=== PATIENT | female | born 1995 | race Caucasian/White ===

== ENCOUNTER 2016-12-08 18:59 | Emergency (ER) | payer OTHER ==
[2016-12-08 19:40] VITALS: BP 149/48
== END 2016-12-08 20:10 | disposition left against medical advice (07) ==
LOC: UCCORT 18:59
DX: R50.9 Fever, unspecified (principal); Z53.21 Procedure and treatment not carried out due to patient leaving prior to being seen by health care provider

== ENCOUNTER 2017-03-28 09:06 | Emergency (ER) | payer OTHER ==
--- NOTE | 2017-03-28 09:44 | UC ---
Throat Pain/Nasal Lencho HPI - HPI Summary HPI Summary: sore throat that began yesterday, difficult to swallow today. denies fever. + exposure to strep throat. + nasal congestion and mild cough. - History of Current Complaint Chief Complaint: UCGeneralIllness Stated Complaint: THROAT Time Seen by Provider: 03/28/17 09:27 Hx Last Menstrual Period: present - Allergies/Home Medications Allergies/Adverse Reactions: Allergies Allergy/AdvReac Type Severity Reaction Status Date / Time No Known Allergies Allergy Verified 03/28/17 09:22 Home Medications: Home Medications Simvastatin (NF) [Zocor (NF)] 40 03/28/17 [History] PMH/Surg Hx/FS Hx/Imm Hx Previously Healthy: Yes Endocrine History Of: Reports: Diabetes - non insulin dependent Denies: Thyroid Disease Cardiovascular History Of: Reports: Hypertension Denies: Cardiac Disorders Respiratory History Of: Denies: COPD, Asthma GI/ History Of: Denies: Ulcer - Surgical History Surgical History: None - Family History Known Family History: Positive: None, Diabetes, Other - MOTHER/FIANCE MRSA Negative: Blood Disorder - Social History Alcohol Use: None Substance Use Type: None Smoking Status (MU): Never Smoked Tobacco Review of Systems Constitutional: Negative Skin: Negative Eyes: Negative ENT: Sore Throat, Nasal Discharge Respiratory: Cough - no wheezing Cardiovascular: Negative Gastrointestinal: Negative Genitourinary: Negative Motor: Negative Neurovascular: Negative Musculoskeletal: Negative Neurological: Negative Psychological: Negative All Other Systems Reviewed And Are Negative: Yes Physical Exam Triage Information Reviewed: Yes Appearance: Well-Appearing, No Pain Distress, Well-Nourished Vital Signs: Initial Vital Signs Temp 98.4 F 03/28/17 09:14 Pulse 90 03/28/17 09:14 Resp 18 03/28/17 09:14 BP 137/82 03/28/17 09:14 Pulse Ox 99 03/28/17 09:14 Vital Signs Reviewed: Yes Eye Exam: Normal ENT Exam: Normal ENT: Positive: Pharyngeal erythema - + PND, no exudate., Nasal congestion, Nasal drainage, TMs normal. Negative: TM bulging, TM dull, TM red, Tonsillar swelling, Tonsillar exudate - no abscess Neck exam: Normal Neck: Positive: Supple, Nontender, No Lymphadenopathy Respiratory Exam: Normal Respiratory: Positive: Lungs clear, Normal breath sounds, No respiratory distress, No accessory muscle use Cardiovascular Exam: Normal Cardiovascular: Positive: RRR, No Murmur, Pulses Normal, Brisk Capillary Refill Abdomen Description: Positive: Nontender, Soft Musculoskeletal Exam: Normal Neurological Exam: Normal Psychological Exam: Normal Skin Exam: Normal Throat Pain/Nasal Course/Dx - Course Course Of Treatment: rapid strep neg - Differential Dx/Diagnosis Differential Diagnosis/HQI/PQRI: Laryngitis, Pharyngitis, URI Provider Diagnoses: URI, viral pharyngitis Discharge - Discharge Plan Condition: Stable Disposition: HOME Patient Education Materials: Pharyngitis (ED), Upper Respiratory Infection (ED) Referrals: ROB Vance [Primary Care Provider] - 4 Days Additional Instructions: Follow up with your PCP if your symptoms are no better or worsen. Lots of fluids and rest. Tylenol cold and sinus may be helpful as well.
[2017-03-28 09:45] VITALS: BP 137/82
== END 2017-03-28 10:29 | disposition home or self-care (01) ==
LOC: UCCORT 09:06
DX: J06.9 Acute upper respiratory infection, unspecified (principal); J02.8 Acute pharyngitis due to other specified organisms; E11.9 Type 2 diabetes mellitus without complications; I10 Essential (primary) hypertension
CPT/HCPCS: 87651; 99211; G0463

== ENCOUNTER 2017-07-10 09:08 | Emergency (ER) | payer OTHER ==
--- NOTE | 2017-07-10 09:22 | UC ---
Throat Pain/Nasal Lencho HPI - HPI Summary HPI Summary: 22 YEAR OLD FEMALE PRESENTS WITH COMPLAINS OF FEVER AND SORE THROAT. - History of Current Complaint Stated Complaint: FEVER/ST Time Seen by Provider: 07/10/17 09:19 Hx Obtained From: Patient Hx Last Menstrual Period: present Onset/Duration: Sudden Onset Severity: Moderate Pain Scale Used: 0-10 Numeric - 5 Cough: Nonproductive Associated Signs & Symptoms: Positive: Negative - Allergies/Home Medications Allergies/Adverse Reactions: Allergies Allergy/AdvReac Type Severity Reaction Status Date / Time Ibuprofen AdvReac Vomiting Verified 07/10/17 09:36 PMH/Surg Hx/FS Hx/Imm Hx Previously Healthy: Yes - Surgical History Surgical History: None - Family History Known Family History: Positive: None, Diabetes, Other - MOTHER/FIANCE MRSA Negative: Blood Disorder - Social History Alcohol Use: None Substance Use Type: None Smoking Status (MU): Never Smoked Tobacco Review of Systems Constitutional: Negative Skin: Negative Eyes: Negative ENT: Sore Throat, Nasal Discharge, Sinus Congestion Respiratory: Negative Cardiovascular: Negative Gastrointestinal: Negative Genitourinary: Negative Motor: Negative Neurovascular: Negative Musculoskeletal: Negative Neurological: Negative Psychological: Negative All Other Systems Reviewed And Are Negative: Yes Physical Exam Triage Information Reviewed: Yes Eye Exam: Normal ENT: Positive: Pharyngeal erythema, Nasal congestion, Nasal drainage, Tonsillar swelling Dental Exam: Normal Neck exam: Normal Neck: Positive: 1 Respiratory Exam: Normal Cardiovascular Exam: Normal Abdominal Exam: Normal Musculoskeletal Exam: Normal Neurological Exam: Normal Psychological Exam: Normal Skin Exam: Normal Throat Pain/Nasal Course/Dx - Differential Dx/Diagnosis Provider Diagnoses: TONSILLITIS. PHARYNGITIS Discharge - Discharge Plan Condition: Stable Disposition: HOME Prescriptions: Amoxicillin/Clavulanate TAB* [Augmentin TAB 875*] 875 mg PO BID #20 tab Magic M W2 Altaf/Maal/Nyst/Lido* 15 ml SWISH SPIT QID #120 ml Methylprednisolone [Medrol Dosepak 4 MG*] 4 mg PO .SEE BERTHA INSTRUCTION #21 tab Patient Education Materials: Pharyngitis (ED), Tonsillitis (ED) Referrals: ROB Vance [Z.BUSINESS, APPLICATION, OTHER] -
[2017-07-10 09:36] VITALS: BP 140/105
== END 2017-07-10 10:03 | disposition home or self-care (01) ==
LOC: UCCORT 09:08
DX: J03.90 Acute tonsillitis, unspecified (principal); J02.9 Acute pharyngitis, unspecified; Z32.02 Encounter for pregnancy test, result negative
CPT/HCPCS: 81003; 84702; 87070; 87086; 87651; 99212; G0463

== ENCOUNTER 2017-08-29 15:59 | Emergency (ER) | payer OTHER ==
[2017-08-29 16:31] VITALS: BP 150/82
--- NOTE | 2017-08-29 17:46 | UC ---
Upper Extremity HPI - HPI Summary HPI Summary: Pt presents with gradual onset of right hand and wrist pain and numbness that is worse in the morning upon wakening. pt also c/o of radiating burning, pain to right elbow and upper right arm. X 2-3 weeks. Pt denies injury - History of Current Complaint Chief Complaint: UCUpperExtremity Stated Complaint: RIGHT HAND PAIN Time Seen by Provider: 08/29/17 17:32 Hx Obtained From: Patient Hx Last Menstrual Period: 08/25/17 ?: No Onset/Duration: Gradual Onset, Lasting Weeks, Still Present Severity Initially: Mild Severity Currently: Mild Character: Dull, Aching Aggravating Factor(s): Flexion Alleviating Factor(s): Rest Associated Signs And Symptoms: Positive: Weakness, Numbness/Tingling Related History: Dominant Hand Right - Risk Factors Non-Orthopedic Risk Factor: Negative DVT Risk Factors: Negative Septic Arthritis Risk Factor: Negative - Allergies/Home Medications Allergies/Adverse Reactions: Allergies Allergy/AdvReac Type Severity Reaction Status Date / Time Ibuprofen AdvReac Vomiting Verified 08/29/17 16:28 PMH/Surg Hx/FS Hx/Imm Hx Previously Healthy: Yes - Surgical History Surgical History: None - Family History Known Family History: Positive: None, Diabetes, Other - MOTHER/FIANCE MRSA Negative: Blood Disorder - Social History Occupation: Employed Full-time Lives: With Family Alcohol Use: None Substance Use Type: None Smoking Status (MU): Never Smoked Tobacco Have You Smoked in the Last Year: No Review of Systems Constitutional: Negative Skin: Negative Eyes: Negative ENT: Negative Respiratory: Negative Cardiovascular: Negative Gastrointestinal: Negative Genitourinary: Negative Motor: Negative Neurovascular: Negative Musculoskeletal: Arthralgia, Myalgia - right hand and forearm Neurological: Negative Psychological: Negative Is Patient Immunocompromised?: No All Other Systems Reviewed And Are Negative: Yes Physical Exam Triage Information Reviewed: Yes Appearance: Well-Appearing Vital Signs: Initial Vital Signs Temp 98.2 F 08/29/17 16:22 Pulse 90 08/29/17 16:22 Resp 16 08/29/17 16:22 BP 150/82 08/29/17 16:22 Pulse Ox 98 08/29/17 16:22 Eye Exam: Normal ENT Exam: Normal Neck exam: Normal Respiratory Exam: Normal Cardiovascular Exam: Normal Musculoskeletal Exam: Normal Musculoskeletal: Positive: Strength Intact, Other: - pain dorsal medial forarm and mid wrist Neurological Exam: Normal Psychological Exam: Normal Skin Exam: Normal Upper Extremity Course/Dx - Differential Dx/Diagnosis Differential Diagnosis/HQI/PQRI: Strain Provider Diagnoses: tendinitis. ovetruse syndrome. neuritis Discharge - Discharge Plan Condition: Stable Disposition: HOME Prescriptions: predniSONE TAB* [Deltasone TAB*] 20 mg PO DAILY #4 tab Patient Education Materials: Tendinitis (ED) Referrals: Ricardo Martinez MD [Medical Doctor] - If Needed B[facility] [Primary Care Provider] - If Needed Additional Instructions: Please follow up with your PCP or return to clinic. We have provided a referral to an orthopedic provider please follow up as needed.
== END 2017-08-29 18:00 | disposition home or self-care (01) ==
LOC: UCCORT 15:59
DX: M77.8 Other enthesopathies, not elsewhere classified (principal); M79.2 Neuralgia and neuritis, unspecified; Z88.6 Allergy status to analgesic agent
CPT/HCPCS: 99212; G0463

== ENCOUNTER 2018-06-29 08:15 | Emergency (ER) | payer OTHER ==
--- OUTSIDE RECORDS SUMMARY | 2018-06-29 08:22 | XMS REPORT ---
:1995 Author Organization [facility] Address [address] [place] [address] Care Team Providers Name Role Phone Radha Calles Unavailable Unavailable PROBLEMS Type Condition ICD9-CM [id number] Onset Condition SNOMED Code Code Code Dates Status Problem Family history of Z80.49 Active 204650366 malignant neoplasm of other genital organs Problem Family history of Z80.41 Active 042320487 malignant neoplasm of ovary Problem Chlamydial A74.9 Active 993574598 infection, unspecified Problem Essential I10 Active 17279877 (primary) hypertension Problem Type 2 diabetes E11.9 Active 167298936 mellitus without complications Problem Polycystic ovarian E28.2 Active 01802386 syndrome Problem Noninflammatory N90.9 Active 176339358 disorder of vulva and perineum, unspecified Problem Body mass index Z68.43 Active 297345456 (BMI) 50-59.9 , adult Problem Impaired glucose R73.02 Active 380072307 tolerance (oral) Problem Irregular N92.6 Active 36325876 menstruation, unspecified Problem Other ovarian N83.291 Active 55470576793013530 cyst, right side Problem Morbid (severe) E66.01 Active 160467403 obesity due to excess calories ALLERGIES No Information ENCOUNTERS Encounter Location Date Diagnosis [facility] [address] Nov, OBGYN [place] [id number] [facility] Jun, [place]BG[place] [id number] [facility] Jun, [place]BG[place] [id number] [facility] Jun, [place] [id number] [facility] [address] Jun, [place] [id number] [facility] 103 May, [place] [id number] [facility] 103 May, [place] [id number] [facility] 103 May, Irregular menstruation, OBG[facility], unspecified N92.6 ; Other [place] [id number] ovarian cyst, right side N83.291 ; Family history of malignant neoplasm of other genital organs Z80.49 ; Family history of malignant neoplasm of ovary Z80.41 ; Encounter for screening for infections with a predominantly sexual mode of transmission Z11.3 ; Noninflammatory disorder of vulva and perineum, unspecified N90.9 and Body mass index (BMI) 50-59.9 , adult Z68.43 [facility] 103 May, [place] [id number] [facility] 103 May, [place] [id number] [facility] 103 Apr, [facility]regular menstruation, [facility], unspecified N92.6 and [place] [id number] Polycystic ovarian syndrome E28.2 [facility] 103 Apr, [place] [id number] [facility] 103 Apr, Encounter for screening [facility], for infections with a [place] [id number] predominantly sexual mode of transmission Z11.3 [facility] 103 March, [place] [id number] [facility] 103 March, [place] [id number] [facility] 103 March, [place] [id number] [facility] 103 Feb, Irregular menstruation, [facility], unspecified N92.6 ; [place] [id number] Chlamydial infection, unspecified A74.9 ; Other ovarian cyst, right side N83.291 and Polycystic ovarian syndrome E28.2 [facility] Feb, [facility], malignant neoplasm [place] [id number] other genital organs Z80.49 ; Polycystic ovarian syndrome E28.2 ; Irregular menstruation, unspecified N92.6 ; Family history of malignant neoplasm of ovary Z80.41 and Encounter for routine checking of intrauterine contraceptive device Z30.431 [facility] [address] Feb, [place] [id number] [facility] [address] Feb, [place] [id number] [facility] 103 Feb, [place] [id number] [facility] 103 Feb, Chlamydial infection , [facility], unspecified A74.9 [place] [id number] [facility] 103 Jan, Chlamydial infection , [facility], unspecified A74.9 [place] [id number] [facility] Jan, [place] [id number] [facility] 103 Jan, Chlamydial infection , [facility], unspecified A74.9 and [place] [id number] Irregular menstruation, unspecified N92.6 [facility] 103 Dec, [place] [id number] [facility] Nov, [place] [id number] [facility] 103 Nov, Chlamydial infection , [facility], unspecified A74.9 and [place] [id number] Other specified noninflammatory disorders of vagina N89.8 [facility] 103 Nov, Impaired glucose tolerance [facility], (oral) R73.02 [place] [id number] [facility] Nov, Encounter for [facility], gynecological examination [place] [id number] (general) (routine) with abnormal findings Z01.411 ; Encounter for screening for malignant neoplasm of cervix Z12.4 ; Encounter for contraceptive management, unspecified Z30.9 ; Family history of malignant neoplasm of ovary Z80.41 ; Family history of malignant neoplasm of other genital organs Z80.49 ; Chlamydial infection, unspecified A74.9 ; Polycystic ovarian syndrome E28.2 ; Morbid (severe) obesity due to excess calories E66.01 ; Impaired glucose tolerance (oral) R73.02 and Irregular menstruation, unspecified N92.6 [facility] [address] Oct, [place], [place] [id number] [facility] [address] Oct, [place], [place] [id number] [facility] 103 Oct, Encounter for screening [facility], for infections with a [place] [id number] predominantly sexual mode of transmission Z11.3 ; Chlamydial infection, unspecified A74.9 ; Family history of malignant neoplasm of other genital organs Z80.49 ; Polycystic ovarian syndrome E28.2 and Amenorrhea, unspecified N91.2 [facility] [address] Aug, [place], [place] [id number] [facility] [address] Aug, [place], [place] [id number] [facility] Aug, 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 [facility], V72.31 and Amenorrhea [place] [id number] 626.0 [facility] [address] March, [place]BG[place] [id number] [facility] 103 March, [place]BG[place] [id number] [facility] 103 March, Postcoital bleeding 626.7 [facility]YN [facility], and STD Screen V74.5 [place] [id number] IMMUNIZATIONS No Known Immunizations SOCIAL HISTORY Never Assessed REASON FOR REFERRAL FUNCTIONAL STATUS PLAN OF CARE VITAL SIGNS MEDICATIONS Unknown Medications PROCEDURES No Known procedures RESULTS No Results REASON FOR VISIT Appt issue MEDICAL (GENERAL) HISTORY Type Description Date Medical History HTN Medical History PCOS Medical History Vitamin D def. Medical History Type 2 diabetes
--- OUTSIDE RECORDS SUMMARY | 2018-06-29 08:22 | XMS REPORT ---
:1995 Author Organization [facility] Address [address] [place] [address] Care Team Providers Name Role Phone Radha Calles Unavailable Unavailable PROBLEMS Type Condition ICD9-CM [id number] Onset Condition SNOMED Code Code Code Dates Status Problem Type 2 diabetes E11.9 Active 969059510 mellitus without complications Problem Family history of Z80.49 Active 526823756 malignant neoplasm of other genital organs Problem Polycystic E28.2 Active 22753216 ovarian syndrome Problem Herpesviral A60.00 Active 21622028 infection of urogenital system, unspecified Problem Essential I10 Active 81523140 (primary) hypertension Problem 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, unspecified Problem Body mass index Z68.43 Active 205616236 (BMI) 50-59.9 , adult Problem Family history of Z80.41 Active 146623852 malignant neoplasm of ovary Problem Chlamydial A74.9 Active 618797807 infection, unspecified Problem Other ovarian N83.291 Active 14978076835160615 cyst, right side Problem Irregular N92.6 Active 33632034 menstruation, unspecified ALLERGIES No Information ENCOUNTERS Encounter Location Date Diagnosis [facility] [address] Nov, [place]BG[place] [id number] [facility] Jul, [place] [id number] [facility] [address] Jul, [place] [id number] [facility] [address] Jul, [place] [id number] [facility] [address] Jul, [place] [id number] [facility] [address] Jun, [place], [place] [id number] [place] [facility] [address] Jun, [place], [place] [id number] [place] [facility] 103 Jun, Irregular menstruation, [facility], unspecified N92.6 ; Other [place] [id number] ovarian cyst, right side N83.291 ; Family history of malignant neoplasm of other genital organs Z80.49 ; Family history of malignant neoplasm of ovary Z80.41 ; Encounter for screening for infections with a predominantly sexual mode of transmission Z11.3 ; Noninflammatory disorder of vulva and perineum, unspecified N90.9 ; Body mass index (BMI) 50-59.9 , adult Z68.43 and Anogenital herpesviral infection, unspecified A60.9 [place] [facility] Jun, Family history of [facility], malignant neoplasm of [place] [id number] other genital organs Z80.49 ; Polycystic ovarian syndrome E28.2 ; Family history of malignant neoplasm of ovary Z80.41 and Irregular menstruation, unspecified N92.6 [place] [facility] [address] May, [place], [place] [id number] [place] [facility] [address] May, [place], [place] [id number] [place] [facility] 103 May, Irregular menstruation, [facility], unspecified N92.6 ; Other [place] [id number] ovarian cyst, right side N83.291 ; Family history of malignant neoplasm of other genital organs Z80.49 ; Family history of malignant neoplasm of ovary Z80.41 ; Encounter for screening for infections with a predominantly sexual mode of transmission Z11.3 ; Noninflammatory disorder of vulva and perineum, unspecified N90.9 and Body mass index (BMI) 50-59.9 , adult Z68.43 [place] [facility] [address] May, [place], [place] [id number] [place] [facility] 103 May, [place] [id number] [place] [facility] 103 Apr, [facility], [facility], unspecified N92.6 and [place] [id number] Polycystic ovarian syndrome E28.2 [place] [facility] [address] Apr, [place] [id number] [facility] Apr, Encounter for screening [facility], for infections with a [place] [id number] predominantly sexual mode of transmission Z11.3 [place] [facility] [address] March, [place] [id number] [place] [facility] [address] March, [place] [id number] [place] [facility] [address] March, [place] [id number] [place] [facility] 103 Feb, Irregular menstruation, [facility], unspecified N92.6 ; [place] [id number] Chlamydial infection, unspecified A74.9 ; Other ovarian cyst, right side N83.291 and Polycystic ovarian syndrome E28.2 [place] [facility] Feb, Family history of [facility], malignant neoplasm of [place] [id number] other genital organs Z80.49 ; Polycystic ovarian syndrome E28.2 ; Irregular menstruation, unspecified N92.6 ; Family history of malignant neoplasm of ovary Z80.41 and Encounter for routine checking of intrauterine contraceptive device Z30.431 [place] [facility] [address] Feb, [place] [id number] [place] [facility] Feb, [place] [id number] [place] [facility] [address] Feb, [place] [id number] [place] [facility] 103 Feb, [facility] , [facility], unspecified A74.9 [place] [id number] [place] [facility] 103 Jan, Chlamydial infection , [facility], unspecified A74.9 [place] [id number] [place] [facility] Jan, [facility] [place] [id number] [place] [facility] Jan, Chlamydial infection , [facility], unspecified A74.9 and [place] [id number] Irregular menstruation, unspecified N92.6 [place] [facility] 103 Dec, [facility] [place] [id number] [place] [facility] 103 Nov, [facility] [place] [id number] [place] [facility] 103 Nov, Chlamydial infection , [facility], unspecified A74.9 and [place] [id number] Other specified noninflammatory disorders of vagina N89.8 [place] [facility] 103 Nov, Impaired glucose tolerance [facility], (oral) R73.02 [place] [id number] [place] [facility] Nov, Encounter for [facility], gynecological examination [place] [id number] (general) (routine) with abnormal findings Z01.411 ; [...] (oral) R73.02 and Irregular menstruation, unspecified N92.6 [facility] 103 Oct, [place] [id number] [facility] 103 Oct, [place] [id number] [facility] 103 Oct, [facility], for infections with a [place] [id number] predominantly sexual mode of transmission Z11.3 ; Chlamydial infection, unspecified A74.9 ; Family history of malignant neoplasm of other genital organs Z80.49 ; Polycystic ovarian syndrome E28.2 and Amenorrhea, unspecified N91.2 [facility] 103 Aug, [place] [id number] [facility] 103 Aug, [place] [id number] [facility] 103 Aug, 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 [facility], V72.31 and [place] [id number] 626.0 [facility] 103 March, [place] [id number] [facility] 103 March, [place] [id number] [facility] 103 March, [facility]coital bleeding 626.7 [facility], and STD Screen V74.5 [place] [id number] IMMUNIZATIONS No Known Immunizations SOCIAL HISTORY Never Assessed REASON FOR REFERRAL FUNCTIONAL STATUS PLAN OF CARE VITAL SIGNS MEDICATIONS Unknown Medications PROCEDURES No Known procedures RESULTS No Results REASON FOR VISIT hey MEDICAL (GENERAL) HISTORY Type Description Date Medical History HTN Medical History PCOS Medical History Vitamin D def. Medical History Type 2 diabetes
--- OUTSIDE RECORDS SUMMARY | 2018-06-29 08:22 | XMS REPORT ---
:1995 Author Organization [facility] Address [address] [place] [address] Care Team Providers Name Role Phone Carlos Hines Unavailable Unavailable PROBLEMS Type Condition ICD9-CM [id number] Onset Condition SNOMED Code Code Code Dates Status Problem Type 2 diabetes E11.9 Active 910582385 mellitus without complications Problem Family history of Z80.49 Active 698460070 malignant neoplasm of other genital organs Problem Polycystic E28.2 Active 58210160 ovarian syndrome Problem Herpesviral A60.00 Active 33116190 infection of urogenital system, unspecified Problem Essential I10 Active 98323448 (primary) hypertension Problem Anogenital A60.9 Active 281352802 herpesviral infection, unspecified Problem Body mass index Z68.43 Active 199338922 (BMI) 50-59.9 , adult Problem Family history of Z80.41 Active 265093376 malignant neoplasm of ovary Problem Chlamydial A74.9 Active 932323148 infection, unspecified Problem Other ovarian N83.291 Active 20456026049052009 cyst, right side Problem Irregular N92.6 Active 73158312 menstruation, unspecified ALLERGIES No Known Allergies ENCOUNTERS Encounter Location Date Diagnosis [facility] [address] Nov, [place] [id number] [facility] Jul, [place] [id number] [facility] [address] Jul, [place] [id number] [facility] Jul, [place] [id number] [facility] [address] Jul, [place] [id number] [facility] Jun, [place] [id number] [place] [facility] Jun, [place] [id number] [place] [facility] Jun, Irregular menstruation, [facility], unspecified N92.6 ; Other [place] [id number] ovarian cyst, right side N83.291 ; Family history of malignant neoplasm of other genital organs Z80.49 ; Family history of malignant neoplasm of ovary Z80.41 ; Encounter for screening for infections with a predominantly sexual mode of transmission Z11.3 ; Noninflammatory disorder of vulva and perineum, unspecified N90.9 ; Body mass index (BMI) 50-59.9 , adult Z68.43 and Anogenital herpesviral infection, unspecified A60.9 [place] [facility] Jun, Family history of [facility], malignant [place]oplasm [place] [address] other genital organs Z80.49 ; Polycystic ovarian syndrome E28.2 ; Family history of malignant neoplasm of ovary Z80.41 and Irregular menstruation, unspecified N92.6 [place] [facility] [address] May, [place], [place] [id number] [place] [facility] May, [place], [place] [id number] [place] [facility] May, Irregular menstruation, [facility], unspecified N92.6 ; Other [place] [id number] ovarian cyst, right side N83.291 ; Family history of malignant neoplasm of other genital organs Z80.49 ; Family history of malignant neoplasm of ovary Z80.41 ; Encounter for screening for infections with a predominantly sexual mode of transmission Z11.3 ; Noninflammatory disorder of vulva and perineum, unspecified N90.9 and Body mass index (BMI) 50-59.9 , adult Z68.43 [place] [facility] [address] May, [place] [id number] [place] [facility] 103 May, [place] [id number] [place] [facility] 103 Apr, Irregular menstruation, [facility], unspecified N92.6 and [place] [id number] Polycystic ovarian syndrome E28.2 [place] [facility] Apr, [place] [id number] [facility] Apr, Encounter for screening [facility], for infections with a [place] [id number] predominantly sexual mode of transmission Z11.3 [place] [facility] March, [place] [id number] [place] [facility] 103 March, [place] [id number] [facility] March, [place] [id number] [place] [facility] Feb, Irregular menstruation, [facility], unspecified N92.6 ; [place] [id number] Chlamydial infection, unspecified A74.9 ; Other ovarian cyst, right side N83.291 and Polycystic ovarian syndrome E28.2 [place] [facility] Feb, Family history of [facility], malignant neoplasm [place] [address] other genital organs Z80.49 ; Polycystic ovarian syndrome E28.2 ; Irregular menstruation, unspecified N92.6 ; Family history of malignant neoplasm of ovary Z80.41 and Encounter for routine checking of intrauterine contraceptive device Z30.431 [facility] Feb, [place] [id number] [place] [facility] Feb, [place] [id number] [place] [facility] Feb, [facility] [place] [id number] [place] [facility] Feb, [facility] , [facility], unspecified A74.9 [place] [id number] [place] [facility] 103 Jan, Chlamydial infection , [facility], unspecified A74.9 [place] [id number] [place] [facility] Jan, [facility] [place] [id number] [place] [facility] Jan, [facility]ial infection , [facility], unspecified A74.9 and [place] [id number] Irregular menstruation, unspecified N92.6 [place] [facility] Dec, [facility] [place] [id number] [place] [facility] Nov, [facility] [place] [id number] [place] [facility] 103 Nov, Chlamydial infection , [facility], unspecified A74.9 and [place] [id number] Other specified noninflammatory disorders of vagina N89.8 [place] [facility] Nov, Impaired glucose tolerance [facility], (oral) R73.02 [place] [id number] [place] [facility] Nov, Encounter for [facility], gynecological examination [place] [id number] (general) (routine) with abnormal findings Z01.411 ; [...] (oral) R73.02 and Irregular menstruation, unspecified N92.6 [facility] [address] Oct, [place] [id number] [facility] [address] Oct, [place], [place] [id number] [facility] 103 Oct, Encounter for screening [facility], for infections with a [place] [id number] predominantly sexual mode of transmission Z11.3 ; Chlamydial infection, unspecified A74.9 ; Family history of malignant neoplasm of other genital organs Z80.49 ; Polycystic ovarian syndrome E28.2 and Amenorrhea, unspecified N91.2 [facility] [address] Aug, [place], [place] [id number] [facility] [address] Aug, [place] [id number] [facility] [address] Aug, 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 Schedule hysterosono/EMB (needs preauth) [facility]: VITAL SIGNS Height 65 in 2018-06-14 Weight 352 lbs 2018-06-14 BMI 58.57 kg/m2 2018-06-14 Blood pressure systolic 126 mm Hg 2018-06-14 Blood pressure diastolic 72 mm Hg 2018-06-14 MEDICATIONS Medication Instructions Dosage Frequency Start End Duration Status Date Date Cytotec 200 mcg orally 1 at 1 tab Jun, Active dinner, 1 at 2018 bedtime, 1 in AM of procedure Valacyclovir orally once a 1 tab(s) 24h Jun, 7 day(s) Active Hydrochloride 500 day 2017 mg norethindrone orally once a 1 tab(s) 24h Feb, 84 days Active 0.35 mg day 2017 metformin 500 mg orally BID 1 12h Active lisinopril 40 mg orally once a 1 tab(s) 24h 30 day(s) Active day PROCEDURES No Known procedures RESULTS No Results REASON FOR VISIT fup to US, Needs AUB w/up - worrisome F[place] needed - (FH uterine and ov cancers), Please informpt HSV 2 swab at last visit was + MEDICAL (GENERAL) HISTORY Type Description Date Medical History HTN Medical History PCOS Medical History Vitamin D def. Medical History Type 2 diabetes
--- OUTSIDE RECORDS SUMMARY | 2018-06-29 08:22 | XMS REPORT ---
:1995 Author Organization [facility] Address [address] [place] [address] Care Team Providers Name Role Phone Radha Calles Unavailable Unavailable PROBLEMS Type Condition ICD9-CM [id number] Onset Condition SNOMED Code Code Code Dates Status Problem Type 2 diabetes E11.9 Active 951280076 mellitus without complications Problem Family history of Z80.49 Active 642160177 malignant neoplasm of other genital organs Problem Polycystic E28.2 Active 13137746 ovarian syndrome Problem Herpesviral A60.00 Active 97228491 infection of urogenital system, unspecified Problem Essential I10 Active 93553440 (primary) hypertension Problem Anogenital A60.9 Active 361045935 herpesviral infection, unspecified Problem Body mass index Z68.43 Active 348644659 (BMI) 50-59.9 , adult Problem Family history of Z80.41 Active 438723915 malignant neoplasm of ovary Problem Chlamydial A74.9 Active 256595981 infection, unspecified Problem Other ovarian N83.291 Active 13984757605424168 cyst, right side Problem Irregular N92.6 Active 69542591 menstruation, unspecified ALLERGIES No Information ENCOUNTERS Encounter Location Date Diagnosis [facility] [address] Nov, [place], [place] [id number] [facility] Jul, [place] [id number] [facility] [address] Jul, [place] [id number] [facility] [address] Jul, [place] [id number] [facility] [address] Jul, [place] [id number] [facility] [address] Jun, [place] [id number] [facility] Jun, [place] [id number] [facility] Jun, [facility], [place] [id number] other genital organs Z80.49 and Family history of malignant neoplasm of ovary Z80.41 [facility] [address] Jun, [place] [id number] [facility] Jun, Irregular menstruation, [facility], unspecified N92.6 ; Other [place] [id number] ovarian cyst, right side N83.291 ; Family history of malignant neoplasm of other genital organs Z80.49 ; Family history of malignant neoplasm of ovary Z80.41 ; Encounter for screening for infections with a predominantly sexual mode of transmission Z11.3 ; Noninflammatory disorder of vulva and perineum, unspecified N90.9 ; Body mass index (BMI) 50-59.9 , adult Z68.43 and Anogenital herpesviral infection, unspecified A60.9 [facility] [address] Jun, Family history of OBGYN [facility], malignant [place]oplasm [place] [address] other genital organs Z80.49 ; Polycystic ovarian syndrome E28.2 ; Family history of malignant neoplasm of ovary Z80.41 and Irregular menstruation, unspecified N92.6 [facility] [address] May, [place] [id number] [facility] May, [place] [id number] [facility] May, Irregular menstruation, [facility], unspecified N92.6 ; Other [place] [id number] ovarian cyst, right side N83.291 ; Family history of malignant neoplasm of other genital organs Z80.49 ; Family history of malignant neoplasm of ovary Z80.41 ; Encounter for screening for infections with a predominantly sexual mode of transmission Z11.3 ; Noninflammatory disorder of vulva and perineum, unspecified N90.9 and Body mass index (BMI) 50-59.9 , adult Z68.43 [facility] [address] May, [place] [id number] [facility] [address] May, [place] [id number] [facility] 103 Apr, Irregular menstruation, [facility], unspecified N92.6 and [place] [id number] Polycystic ovarian syndrome E28.2 [facility] Apr, [place] [id number] [facility] 103 Apr, Encounter for screening [facility], for infections with a [place] [id number] predominantly sexual mode of transmission Z11.3 [facility] 103 March, [place] [id number] [facility] 103 March, [place] [id number] [facility] 103 March, [place] [id number] [facility] 103 Feb, Irregular menstruation, [facility], unspecified N92.6 ; [place] [id number] Chlamydial infection, unspecified A74.9 ; Other ovarian cyst, right side N83.291 and Polycystic ovarian syndrome E28.2 [facility] Feb, Family history of OBGYN [facility], malignant [place]oplasm [place] [address] other genital organs Z80.49 ; Polycystic ovarian syndrome E28.2 ; Irregular menstruation, unspecified N92.6 ; Family history of malignant neoplasm of ovary Z80.41 and Encounter for routine checking of intrauterine contraceptive device Z30.431 [facility] 103 Feb, [place] [id number] [facility] 103 Feb, [place] [id number] [facility] Feb, [place] [id number] [facility] 103 Feb, Chlamydial infection , [facility], unspecified A74.9 [place] [id number] [facility] 103 Jan, Chlamydial infection , [facility], unspecified A74.9 [place] [id number] [facility] Jan, [place] [id number] [facility] 103 Jan, Chlamydial infection , [facility], unspecified A74.9 and [place] [id number] Irregular menstruation, unspecified N92.6 [facility] 103 Dec, [place] [id number] [facility] 103 Nov, [place] [id number] [facility] 103 Nov, Chlamydial infection , [facility], unspecified A74.9 and [place] [id number] Other specified noninflammatory disorders of vagina N89.8 [facility] 103 Nov, Impaired glucose tolerance [facility], (oral) R73.02 [place] [id number] [facility] Nov, Encounter for [facility] gynecological examination [place] [id number] (general) (routine) with abnormal findings Z01.411 ; [...] (oral) R73.02 and Irregular menstruation, unspecified N92.6 [facility] [address] Oct, [place], [place] [id number] [facility] Oct, [place], [place] [id number] [facility] 103 Oct, Encounter for screening [facility], for infections with a [place] [id number] predominantly sexual mode of transmission Z11.3 ; Chlamydial infection, unspecified A74.9 ; Family history of malignant neoplasm of other genital organs Z80.49 ; Polycystic ovarian syndrome E28.2 and Amenorrhea, unspecified N91.2 [facility] [address] Aug, [place], [place] [id number] [facility] Aug, [place], [place] [id number] [facility] 103 Aug, 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 [facility], V72.31 and [place] [id number] 626.0 [facility] 103 March, [place], [place] [id number] [facility] 103 March, [place], [place] [id number] [facility] 103 29 Mar, 2013 Postcoital bleeding 626.7 OBGYN [facility], and STD Screen V74.5 [place] [id number] IMMUNIZATIONS No Known Immunizations SOCIAL HISTORY Never Assessed REASON FOR REFERRAL FUNCTIONAL STATUS PLAN OF CARE VITAL SIGNS MEDICATIONS Unknown Medications PROCEDURES No Known procedures RESULTS No Results REASON FOR VISIT [facility] Insurance [facility] Member Patient Patient Patient Patient Patient Subscriber Subscriber Subscriber Group Insurance Plan Plan Plan Plan ID Relationship Address Phone Name Date of ID Name Date of No Type Insurance Insurance Insurance Coverage to Subscriber Address Phone Name Dates [phone] Huber self Mare[place] [id number] [place] [address] [facility] [place] [address] [employer] [phone] [employer] [place] [id number] Blue [id number] 89 Blue [place] 2 Cross/Blue [place] Cross/Blue Shield [address] Shield Cigna [phone] Cign[employer] self [place] [id number] [address] [place] [address] MEDICAL (GENERAL) HISTORY Type Description Date Medical History HTN Medical History PCOS Medical History Vitamin D def. Medical History Type 2 diabetes
--- OUTSIDE RECORDS SUMMARY | 2018-06-29 08:22 | XMS REPORT ---
:1995 Author Name sound, ultra Care Team Providers Name Role Phone sound, ultra Unavailable Unavailable PROBLEMS Type Condition ICD9-CM [id number] Onset Condition SNOMED Code Code Code Dates Status Problem Type 2 diabetes E11.9 Active 578997369 mellitus without complications Problem Family history of Z80.49 Active 670764853 malignant neoplasm of other genital organs Problem Polycystic E28.2 Active 23581675 ovarian syndrome Problem Herpesviral A60.00 Active 96513186 infection of urogenital system, unspecified Problem Essential I10 Active 42203726 (primary) hypertension Problem Anogenital A60.9 Active 596406778 herpesviral infection, unspecified Problem Body mass index Z68.43 Active 585355623 (BMI) 50-59.9 , adult Problem Family history of Z80.41 Active 093178540 malignant neoplasm of ovary Problem Chlamydial A74.9 Active 231582012 infection, unspecified Problem Other ovarian N83.291 Active [id number] cyst, right side Problem Irregular N92.6 Active 50169946 menstruation, unspecified ALLERGIES No Information ENCOUNTERS Encounter Location Date Diagnosis [facility] Nov, [place], [place] [id number] [facility] Jul, [place] [id number] [facility] Jul, [place] [id number] [facility] Jul, [place] [id number] [facility] Jul, [place] [id number] [facility] Jun, Family history of OBGYN [facility], malignant neoplasm of [place] [address] other genital organs Z80.49 and Family history of malignant neoplasm of ovary Z80.41 [facility] Jun, [place], [place] [id number] [facility] Jun, Irregular menstruation, [facility], unspecified N92.6 ; Other [place] [id number] ovarian cyst, right side N83.291 ; Family history of malignant neoplasm of other genital organs Z80.49 ; Family history of malignant neoplasm of ovary Z80.41 ; Encounter for screening for infections with a predominantly sexual mode of transmission Z11.3 ; Noninflammatory disorder of vulva and perineum, unspecified N90.9 ; Body mass index (BMI) 50-59.9 , adult Z68.43 and Anogenital herpesviral infection, unspecified A60.9 [facility] Jun, Family history of [facility], [place]oplasm [place] [address] other genital organs Z80.49 ; Polycystic ovarian syndrome E28.2 ; Family history of malignant neoplasm of ovary Z80.41 and Irregular menstruation, unspecified N92.6 [facility] May, [place], [place] [id number] [facility] May, [place], [place] [id number] [facility] May, Irregular menstruation, [facility], unspecified N92.6 ; Other [place] [id number] ovarian cyst, right side N83.291 ; Family history of malignant neoplasm of other genital organs Z80.49 ; Family history of malignant neoplasm of ovary Z80.41 ; Encounter for screening for infections with a predominantly sexual mode of transmission Z11.3 ; Noninflammatory disorder of vulva and perineum, unspecified N90.9 and Body mass index (BMI) 50-59.9 , adult Z68.43 [facility] May, [place] [id number] [facility] May, [place] [id number] [facility] 103 Apr, Irregular menstruation, [facility], unspecified N92.6 and [place] [address] Polycystic ovarian syndrome E28.2 [facility] Apr, [place] [id number] [facility] Apr, Encounter for screening [facility], for infections with a [place] [address] predominantly sexual mode of transmission Z11.3 [facility] March, [place] [id number] [facility] March, [place] [id number] [facility] March, [place] [id number] [facility] Feb, Irregular menstruation, [facility], unspecified N92.6 ; [place] [id number] Chlamydial infection, unspecified A74.9 ; Other ovarian cyst, right side N83.291 and Polycystic ovarian syndrome E28.2 [facility] Feb, Family history of [facility], malignant [place]oplasm [place] [address] other genital organs Z80.49 ; Polycystic ovarian syndrome E28.2 ; Irregular menstruation, unspecified N92.6 ; Family history of malignant neoplasm of ovary Z80.41 and Encounter for routine checking of intrauterine contraceptive device Z30.431 [facility] Feb, [place] [id number] [facility] Feb, [place] [id number] [facility] Feb, [place] [id number] [facility] Feb, [facility] , [facility] unspecified A74.9 [place] [id number] [facility] Jan, [facility]ial infection , [facility], unspecified A74.9 [place] [id number] [facility] Jan, [facility] [place] [id number] [facility] Jan, [facility] , [facility] unspecified A74.9 [place] [id number] Irregular menstruation, unspecified N92.6 [facility] Dec, [facility], [place] [id number] [facility] Nov, [facility] [place] [id number] [facility] Nov, [facility]lamydial infection , [facility], unspecified A74.9 and [place] [id number] Other specified noninflammatory disorders of vagina N89.8 [facility] Nov, Impaired glucose tolerance [facility], (oral) R73.02 [place] [id number] [facility] Nov, Encounter for [facility], gynecological examination [place] [id number] (general) (routine) with abnormal findings Z01.411 ; [...] (oral) R73.02 and Irregular menstruation, unspecified N92.6 [facility] Oct, [place] [id number] [facility] Oct, [place] [id number] [facility] 103 Oct, [facility], for infections with a [place] [address] predominantly sexual mode of transmission Z11.3 ; Chlamydial infection, unspecified A74.9 ; Family history of malignant neoplasm of other genital organs Z80.49 ; Polycystic ovarian syndrome E28.2 and Amenorrhea, unspecified N91.2 [facility] Aug, [place] [id number] [facility] 103 Aug, [place] [id number] [facility] 103 Aug, 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 [facility], V72.31 and Amenorrhea [place] [id number] 626.0 [facility] March, [place] [id number] [facility] March, [place] [id number] [facility] March, [facility]coital bleeding 626.7 [facility], and STD Screen V74.5 [place] [id number] IMMUNIZATIONS No Known Immunizations SOCIAL HISTORY Never Assessed REASON FOR REFERRAL FUNCTIONAL STATUS PLAN OF CARE VITAL SIGNS MEDICATIONS Unknown Medications PROCEDURES Procedure Date Ordered Result Body Site TRANSVAGINAL US, NON-OB Jun 14, 2018 RESULTS Name Result Date Reference Range Ultrasound : Pelvis REASON FOR VISIT U/S MEDICAL (GENERAL) HISTORY Type Description Date Medical History HTN Medical History PCOS Medical History Vitamin D def. Medical History Type 2 diabetes
--- OUTSIDE RECORDS SUMMARY | 2018-06-29 08:23 | XMS REPORT ---
:1995 Author Organization [facility] Address [address] [place] [address] Care Team Providers Name Role Phone Radha Calles Unavailable Unavailable PROBLEMS Type Condition ICD9-CM [id number] Onset Condition SNOMED Code Code Code Dates Status Problem Type 2 diabetes E11.9 Active 750652537 mellitus without complications Problem Family history of Z80.49 Active 451587500 malignant neoplasm of other genital organs Problem Polycystic E28.2 Active 11970777 ovarian syndrome Problem Herpesviral A60.00 Active 76584506 infection of urogenital system, unspecified Problem Essential I10 Active 80206272 (primary) hypertension Problem Anogenital A60.9 Active 257720250 herpesviral infection, unspecified Problem Body mass index Z68.43 Active 372923884 (BMI) 50-59.9 , adult Problem Family history of Z80.41 Active 552480146 malignant neoplasm of ovary Problem Chlamydial A74.9 Active 324845066 infection, unspecified Problem Other ovarian N83.291 Active 26984252251869478 cyst, right side Problem Irregular N92.6 Active 76330893 menstruation, unspecified ALLERGIES No Information ENCOUNTERS Encounter Location Date Diagnosis [facility] Nov, [place], [place] [id number] [facility] Jul, [place], [place] [id number] [facility] Jul, [place] [id number] [facility] Jul, [place] [id number] [facility] Jul, [place] [id number] [facility] Jun, [place], [place] [id number] [facility] Jun, [place], [place] [address] [facility] Jun, Irregular menstruation, [facility], unspecified N92.6 ; Other [place] [address] ovarian cyst, right side N83.291 ; Family history of malignant neoplasm of other genital organs Z80.49 ; Family history of malignant neoplasm of ovary Z80.41 ; Encounter for screening for infections with a predominantly sexual mode of transmission Z11.3 ; Noninflammatory disorder of vulva and perineum, unspecified N90.9 ; Body mass index (BMI) 50-59.9 , adult Z68.43 and Anogenital herpesviral infection, unspecified A60.9 [facility] Jun, Family history of [facility], malignant neoplasm [place] [address] other genital organs Z80.49 ; Polycystic ovarian syndrome E28.2 ; Family history of malignant neoplasm of ovary Z80.41 and Irregular menstruation, unspecified N92.6 [facility] May, [place], [place] [id number] [facility] May, [place], [place] [id number] [facility] May, Irregular menstruation, [facility], unspecified N92.6 ; Other [place] [address] ovarian cyst, right side N83.291 ; Family history of malignant neoplasm of other genital organs Z80.49 ; Family history of malignant neoplasm of ovary Z80.41 ; Encounter for screening for infections with a predominantly sexual mode of transmission Z11.3 ; Noninflammatory disorder of vulva and perineum, unspecified N90.9 and Body mass index (BMI) 50-59.9 , adult Z68.43 [facility] May, [place], [place] [id number] [facility] May, [place] [id number] [facility] Apr, [facility]ation, [facility], unspecified N92.6 and [place] [address] Polycystic ovarian syndrome E28.2 [facility] Apr, [place] [id number] [facility] Apr, Encounter for screening [facility], for infections with a [place] [id number] predominantly sexual mode of transmission Z11.3 [facility] March, [place] [id number] [facility] March, [place] [id number] [facility] March, [place] [address] [facility] Feb, Irregular menstruation, [facility], unspecified N92.6 ; [place] [id number] Chlamydial infection, unspecified A74.9 ; Other ovarian cyst, right side N83.291 and Polycystic ovarian syndrome E28.2 [facility] Feb, Family history of [facility], malignant neoplasm [place] [address] other genital organs Z80.49 ; Polycystic ovarian syndrome E28.2 ; Irregular menstruation, unspecified N92.6 ; Family history of malignant neoplasm of ovary Z80.41 and Encounter for routine checking of intrauterine contraceptive device Z30.431 [place] [facility] Feb, [place] [id number] [place] [facility] Feb, [place] [id number] [place] [facility] Feb, [place] [address] [place] [facility] Feb, [facility]lam[facility]ial infection , [facility], unspecified A74.9 [place] [id number] [place] [facility] Jan, Chlamydial infection , [facility], unspecified A74.9 [place] [id number] [place] [facility] Jan, [facility] [place] [address] [facility] Jan, Chlamydial infection , [facility], unspecified A74.9 and [place] [id number] Irregular menstruation, unspecified N92.6 [place] [facility] Dec, [facility] [place] [id number] [facility] Nov, [facility] [place] [id number] [facility] 103 Nov, Chlamydial infection , [facility], unspecified A74.9 and [place] [address] Other specified noninflammatory disorders of vagina N89.8 [place] Nov, Impaired glucose tolerance [facility], (oral) R73.02 [place] [id number] [place] [facility] Nov, Encounter for [facility], gynecological examination [place] [id number] (general) (routine) with abnormal findings Z01.411 ; [...] (oral) R73.02 and Irregular menstruation, unspecified N92.6 [facility] 103 Oct, [place] [id number] [facility] Oct, [place] [id number] [facility] Oct, Encounter for screening 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 [facility], V72.31 and Amenorrhea [place] [id number] 626.0 [facility] 103 March, [place] [id number] [facility] 103 March, [place] [id number] [facility] 103 March, Postcoital bleeding 626.7 [facility], and STD Screen V74.5 [place] [id number] IMMUNIZATIONS No Known Immunizations SOCIAL HISTORY Never Assessed REASON FOR REFERRAL FUNCTIONAL STATUS PLAN OF CARE VITAL SIGNS MEDICATIONS Unknown Medications PROCEDURES No Known procedures RESULTS No Results REASON FOR VISIT Covered * Auth #[id number] MEDICAL (GENERAL) HISTORY Type Description Date Medical History HTN Medical History PCOS Medical History Vitamin D def. Medical History Type 2 diabetes
--- OUTSIDE RECORDS SUMMARY | 2018-06-29 08:23 | XMS REPORT ---
:1995 [facility] Address [address] [place] [address] Care Team Providers Name Role Phone Radha Calles Unavailable Unavailable PROBLEMS Type Condition ICD9-CM [id number] Onset Condition SNOMED Code Code Code Dates Status Problem Family history Z80.49 Active 607494573 of malignant neoplasm of other genital organs Problem Polycystic E28.2 Active 30869247 ovarian syndrome Problem Other ovarian N83.291 Active 05727342570285546 cyst, right side Problem Morbid (severe) E66.01 Active 512820826 obesity due to excess calories Problem Family history Z80.41 Active 168197952 of malignant neoplasm of ovary Problem Chlamydial A74.9 Active 906667509 infection, unspecified Problem Impaired R73.02 Active 588924493 glucose tolerance (oral) Problem Irregular N92.6 Active 42392634 menstruation, unspecified ALLERGIES No Information ENCOUNTERS Encounter Location Date Diagnosis [facility] Nov, [place] [id number] [facility] May, [place] [id number] [facility] 103 Apr, Irregular menstruation, OBGYN [facility], unspecified N92.6 and [place] [address] Polycystic ovarian syndrome E28.2 [facility] Apr, [place], [place] [address] [facility] Apr, [facility] for [facility], for infections with a [place] [address] predominantly sexual mode of transmission Z11.3 [facility] 103 March, [place] [id number] [facility] March, [place] [id number] [facility] March, [place] [id number] [facility] 103 Feb, Irregular menstruation, [facility], unspecified N92.6 ; [place] [address] Chlamydial infection, unspecified A74.9 ; Other ovarian cyst, right side N83.291 and Polycystic ovarian syndrome E28.2 [facility] Feb, [facility], malignant [place]oplasm [place] [address] other genital organs Z80.49 ; Polycystic ovarian syndrome E28.2 ; Irregular menstruation, unspecified N92.6 ; Family history of malignant neoplasm of ovary Z80.41 and Encounter for routine checking of intrauterine contraceptive device Z30.431 [facility] Feb, [place] [address] [facility] Feb, [place] [id number] [facility] Feb, [place] [id number] [facility] 103 Feb, Chlamydial infection , [facility], unspecified A74.9 [place] [id number] [facility] 103 Jan, Chlamydial infection , [facility], unspecified A74.9 [place] [id number] [facility] Jan, [facility] [place] [id number] [facility] 103 Jan, Chlamydial infection , [facility], unspecified A74.9 and [place] [address] Irregular menstruation, unspecified N92.6 [facility] 103 Dec, [place] [address] [facility] Nov, [place] [id number] [facility] 103 Nov, Chlamydial infection , [facility], unspecified A74.9 and [place] [address] Other specified noninflammatory disorders of vagina N89.8 [facility] 103 Nov, Impaired glucose tolerance [facility], (oral) R73.02 [place] [id number] [facility] Nov, Encounter for [facility] gynecological examination [place] [id number] (general) (routine) with abnormal findings Z01.411 ; [...] (oral) R73.02 and Irregular menstruation, unspecified N92.6 [facility] [address] Oct, [place], [place] [id number] [facility] Oct, [place], [place] [id number] [facility] Oct, Encounter for screening [facility], for infections with a [place] 6[address] predominantly sexual mode of transmission Z11.3 ; Chlamydial infection, unspecified A74.9 ; Family history of malignant neoplasm of other genital organs Z80.49 ; Polycystic ovarian syndrome E28.2 and Amenorrhea, unspecified N91.2 [facility] Aug, [place], [place] [id number] [facility] Aug, [place] [id number] 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 103 March, [place] [id number] [facility] 103 March, [place] [address] [facility] 103 March, Postcoital bleeding 626.7 OBGYN [facility], and STD Screen V74.5 [place] [id number] IMMUNIZATIONS No Known Immunizations SOCIAL HISTORY Never Assessed REASON FOR REFERRAL FUNCTIONAL STATUS PLAN OF CARE VITAL SIGNS MEDICATIONS Unknown Medications PROCEDURES No Known procedures RESULTS No Results REASON FOR VISIT [facility] 06/01/18 MEDICAL (GENERAL) HISTORY Type Description Date Medical History HTN Medical History PCOS Medical History Vitamin D def. Medical History Type 2 diabetes
--- OUTSIDE RECORDS SUMMARY | 2018-06-29 08:23 | XMS REPORT ---
:1995 Author Organization [facility] Address [address] [place] [address] Care Team Providers Name Role Phone Chuyita Pulido Unavailable Unavailable PROBLEMS Type Condition ICD9-CM [id number] Onset Condition SNOMED Code Code Code Dates Status Problem Family history of Z80.49 Active 309178667 malignant neoplasm of other genital organs Problem Family history of Z80.41 Active 046339834 malignant neoplasm of ovary Problem Chlamydial A74.9 Active 766634186 infection, unspecified Problem Essential I10 Active 02147303 (primary) hypertension Problem Type 2 diabetes E11.9 Active 496649754 mellitus without complications Problem Polycystic ovarian E28.2 Active 75710032 syndrome Problem Noninflammatory N90.9 Active 603409727 disorder of vulva and perineum, unspecified Problem Body mass index Z68.43 Active 750742251 (BMI) 50-59.9 , adult Problem Impaired glucose R73.02 Active 136935609 tolerance (oral) Problem Irregular N92.6 Active 23597255 menstruation, unspecified Problem Other ovarian N83.291 Active [id number] cyst, right side Problem Morbid (severe) E66.01 Active 026795300 obesity due to excess calories ALLERGIES No Known Allergies ENCOUNTERS Encounter Location Date Diagnosis [facility] [address] Nov, [place], [place] [id number] [facility] [address] Jun, [place] [id number] [facility] [address] Jun, [place] [id number] [facility] [address] May, [place] [id number] [facility] [address] May, [place] [id number] [facility] [address] May, Irregular menstruation, OBN [facility], unspecified N92.6 ; Other [place] [id number] ovarian cyst, right side N83.291 ; Family history of malignant neoplasm of other genital organs Z80.49 ; Family history of malignant neoplasm of ovary Z80.41 ; Encounter for screening for infections with a predominantly sexual mode of transmission Z11.3 ; Noninflammatory disorder of vulva and perineum, unspecified N90.9 and Body mass index (BMI) 50-59.9 , adult Z68.43 [facility] [address] May, [place] [id number] [facility] [address] May, [place] [id number] [facility] [address] Apr, [facility] menstruation, [facility] unspecified N92.6 and [place] [id number] Polycystic ovarian syndrome E28.2 [facility] [address] Apr, [place] [id number] [facility] [address] Apr, Encounter for screening [facility], for infections with a [place] [id number] predominantly sexual mode of transmission Z11.3 [facility] [address] March, [place] [id number] [facility] [address] March, [place] [id number] [facility] [address] March, [place] [id number] [facility] [address] Feb, [facility]regular menstruation, [facility], unspecified N92.6 ; [place] [id number] Chlamydial infection, unspecified A74.9 ; Other ovarian cyst, right side N83.291 and Polycystic ovarian syndrome E28.2 [facility] [address] Feb, [facility] malignant [place]oplasm [place] [id number] other genital organs Z80.49 ; Polycystic ovarian syndrome E28.2 ; Irregular menstruation, unspecified N92.6 ; Family history of malignant neoplasm of ovary Z80.41 and Encounter for routine checking of intrauterine contraceptive device Z30.431 [facility] [address] Feb, [place] [id number] [facility] [address] Feb, [place] [id number] [facility] [address] Feb, [place] [id number] [facility] [address] Feb, Chlamydial infection , [facility], unspecified A74.9 [place] [id number] [facility] [address] Jan, Chlamydial infection , [facility], unspecified A74.9 [place] [id number] [facility] [address] Jan, [facility] [place] [id number] [facility] [address] Jan, Chlamydial infection , [facility], unspecified A74.9 and [place] [id number] Irregular menstruation, unspecified N92.6 [facility] [address] Dec, [place] [id number] [facility] [address] Nov, [place] [id number] [facility] [address] Nov, Chlamydial infection , [facility], unspecified A74.9 and [place] [id number] Other specified noninflammatory disorders of vagina N89.8 [facility] [address] Nov, Impaired glucose tolerance [facility], (oral) R73.02 [place] [id number] [facility] [address] Nov, Encounter for [facility], gynecological examination [place] [id number] (general) (routine) with abnormal findings Z01.411 ; [...] (oral) R73.02 and Irregular menstruation, unspecified N92.6 [facility] [address] Oct, [place], [place] [id number] [facility] [address] Oct, [place], [place] [id number] [facility] [address] Oct, Encounter for screening [facility], for infections with a [place] [id number] predominantly sexual mode of transmission Z11.3 ; Chlamydial infection, unspecified A74.9 ; Family history of malignant neoplasm of other genital organs Z80.49 ; Polycystic ovarian syndrome E28.2 and Amenorrhea, unspecified N91.2 [facility] [address] Aug, [place] [id number] [facility] [address] Aug, [place] [id number] [facility] [address] Aug, [employer]ATE EXAMINATION [facility], V72.31 and Amenorrhea [place] [id number] 626.0 [facility] [address] March, [place] [id number] [facility] [address] March, [place] [id number] [facility] [address] March, Postcoital bleeding 626.7 OBGYN [facility], and STD Screen V74.5 [place] [id number] IMMUNIZATIONS No Known Immunizations SOCIAL HISTORY Never Assessed REASON FOR REFERRAL FUNCTIONAL STATUS PLAN OF CARE Activity Details Follow Up US, vulvar check & f/u on abnormal periods w/Dr. Snowden in 2 wk Reason: Pending Test HSV1/2 by Swab Pending Test CTNG by Sw[facility] VITAL SIGNS Height 65 in 2018-06-08 Weight 352 lbs 2018-06-08 BMI 58.57 kg/m2 2018-06-08 Blood pressure systolic 128 mm Hg 2018-06-08 Blood pressure diastolic 70 mm Hg 2018-06-08 MEDICATIONS Medication Instructions Dosage Frequency Start End Duration Status Date Date norethindrone orally once a 1 tab(s) 24h Feb, 84 days Active 0.35 mg day 2018 lisinopril 40 mg orally once a 1 tab(s) 24h 30 day(s) Active day doxycycline orally 2 times a 1 cap(s) 12h Jan, 10 day(s) Active hyclate 100 mg day 2018 amoxicillin-clavu orally every 12 1 tab(s) 12h May, 10 day(s) Active lanate 875 mg-125 hours 2018 mg metformin 500 mg orally BID 1 12h Active Diflucan 150 mg orally once, 1 tab(s) May, 8 days Active repeat in 7 days 2018 after antibiotic completion PROCEDURES No Known procedures RESULTS No Results REASON FOR VISIT sore on private area , need US MEDICAL (GENERAL) HISTORY Type Description Date Medical History HTN Medical History PCOS Medical History Vitamin D def. Medical History Type 2 diabetes
[2018-06-29 08:28] VITALS: BP 142/71
--- NOTE | 2018-06-29 08:48 | UC ---
Abdominal Pain Female HPI - HPI Summary HPI Summary: epigastric abdominal pain x 2 days pain is achy , radiating to her back worse with movement, no change in pain with eating no n/v/d/c no fever, no chills - History of Current Complaint Chief Complaint: UCGI Stated Complaint: ABDOMINAL PAIN Time Seen by Provider: 06/29/18 08:25 Hx Obtained From: Patient Hx Last Menstrual Period: on bcp, lmp 06/13/18 ?: No Onset/Duration: Gradual Onset, Lasting Days - 2, Still Present Timing: Constant Severity Initially: Moderate Severity Currently: Moderate Pain Intensity: 6 Location: Epigastric Radiates: Yes Radiates to: Back Character: Aching Aggravating Factor(s): Movement Alleviating Factor(s): Nothing Associated Signs and Symptoms: Negative: Diaphoresis, Fever, Cough, Chest Pain, Dizzy, Back Pain, Constipation, Blood in Stool, Urinary Symptoms, Decreased Appetite, Vaginal Bleeding, Vaginal Discharge, Nausea, Vomiting, Diarrhea Allergies/Adverse Reactions: Allergies Allergy/AdvReac Type Severity Reaction Status Date / Time ibuprofen AdvReac Vomiting Verified 06/29/18 08:22 Home Medications: Home Medications Bcp 1 tab DAILY 06/29/18 [History Confirmed 06/29/18] Lisinopril TAB* [Prinivil TAB 10 MG*] 40 mg DAILY 06/29/18 [History Confirmed ] PMH/Surg Hx/FS Hx/Imm Hx Endocrine History: Diabetes Cardiovascular History: Hypertension - Surgical History Surgical History: None - Family History Known Family History: Positive: None, Diabetes, Other - MOTHER/FIANCE MRSA Negative: Blood Disorder - Social History Alcohol Use: None Substance Use Type: None Smoking Status (MU): Never Smoked Tobacco Have You Smoked in the Last Year: No - Immunization History Most Recent Tetanus Shot: UTD Review of Systems Constitutional: Negative Skin: Negative Eyes: Negative ENT: Negative Respiratory: Negative Cardiovascular: Negative Gastrointestinal: Abdominal Pain Genitourinary: Negative Is Patient Immunocompromised?: No All Other Systems Reviewed And Are Negative: Yes Physical Exam Triage Information Reviewed: Yes Appearance: No Pain Distress, Obese Vital Signs: Initial Vital Signs Temp 98.8 F 06/29/18 08:23 Pulse 98 06/29/18 08:23 Resp 16 06/29/18 08:23 BP 142/71 06/29/18 08:23 Pulse Ox 100 06/29/18 08:23 Vital Signs Reviewed: Yes Eyes: Positive: Conjunctiva Clear ENT: Positive: Normal ENT inspection, Hearing grossly normal, Pharynx normal Neck: Positive: Supple, Nontender, No Lymphadenopathy Respiratory: Positive: Chest non-tender, Lungs clear, Normal breath sounds Cardiovascular: Positive: RRR, No Murmur, Pulses Normal Abdomen Description: Positive: Soft, Other: - epigastric tenderness negative H[place]. Negative: CVA Tenderness (R), CVA Tenderness (L), Distended, Guarding Bowel Sounds: Positive: Present Musculoskeletal Exam: Normal Skin Exam: Normal Abd Pain Female Course/Dx - Differential Dx/Diagnosis Provider Diagnoses: gastritis Discharge - Sign-Out/Discharge Documenting (check all that apply): Patient Departure All imaging exams completed and their final reports reviewed: No Studies - Discharge Plan Condition: Stable Disposition: HOME Prescriptions: Omeprazole 40 mg PO DAILY WITH MEAL #30 capsule. Patient Education Materials: Gastritis (ED) Forms: *Work Release Referrals: Guzman VANCE,Bc Ruiz [Primary Care Provider] - 7 Days Additional Instructions: most likely gastritis / inflammation of your stomach cont. with rest, increase fluid, decrease in fatty / acidic, spicy food, no soda , smoking , coffee concern about your Gallbladder as well, please return back to clinic or go to ED if your symptoms are getting worse of not improving in one week - Billing Disposition and Condition Condition: STABLE Disposition: Home
== END 2018-06-29 09:02 | disposition home or self-care (01) ==
LOC: UCCORT 08:15
DX: K29.70 Gastritis, unspecified, without bleeding (principal); I10 Essential (primary) hypertension; Z79.899 Other long term (current) drug therapy; Z88.6 Allergy status to analgesic agent
CPT/HCPCS: 81003; 87086; 99212; G0463